=== PATIENT | female | born 1980 | race Caucasian/White ===

== ENCOUNTER → 2016-09-23 | Outpatient (CLI) | payer OTHER ==
[2016-09-23 16:01] LABS: CHLAM PCR NOT DETECTED (NOT DETECT)
== END ==
LOC: LAB 14:18
PROVIDERS: ATTEND Nurse Practitioner Acute Care
DX: N89.8 Other specified noninflammatory disorders of vagina (principal)
CPT/HCPCS: 87210; 87491; 87591

== ENCOUNTER → 2016-12-23 | Outpatient (CLI) | payer OTHER ==
[2016-12-23 12:39] LABS: CHLAM PCR NOT DETECTED (NOT DETECT)
== END ==
LOC: LAB 10:54
PROVIDERS: ATTEND Nurse Practitioner Acute Care
DX: N89.8 Other specified noninflammatory disorders of vagina (principal); R10.9 Unspecified abdominal pain
CPT/HCPCS: 87086; 87088; 87210; 87491; 87591

== ENCOUNTER → 2017-04-12 | Outpatient (CLI) | payer OTHER ==
[2017-04-12 11:23] LABS: BACTERIA (WET MOUNT) 4+ BACTERIA SEEN; EPITHELIALS (WET MOUNT) 4+ EPITHELIALS SEEN; T.VAGINALIS (WET MOUNT) NO TRICHOMONAS SEEN; WBCS (WET MOUNT) RARE WBCS SEEN; YEAST (WET MOUNT) YEAST SEEN
== END ==
LOC: LAB 11:18
PROVIDERS: ATTEND Nurse Practitioner Family
DX: N89.8 Other specified noninflammatory disorders of vagina (principal)
CPT/HCPCS: 87210

== ENCOUNTER 2017-10-22 08:23 | Emergency (ER) | payer OTHER ==
[2017-10-22 08:32] VITALS: BP 106/64
[2017-10-22] MEDS ORDERED: CLINDAMYCIN HCL 150 MG CAPSULE PO ONE (09:13)
[2017-10-22] MEDS ORDERED: ONDANSETRON 4 MG TAB.RAPDIS PO ONE (09:14)
[2017-10-22] MEDS ORDERED: KETOROLAC TROMETHAMINE 60 MG/2 ML SDV IM ONE (09:14)
--- NOTE | 2017-10-22 09:28 | ER Document Report ---
ED Oral Problem - General Chief Complaint: Sore Throat Stated Complaint: SORE THROAT Time Seen by Provider: 10/22/17 09:07 Mode of Arrival: Ambulatory Information source: Patient Notes: Patient complained of sore throat which started yesterday. He denies any fever or chills. TRAVEL OUTSIDE OF THE [place] IN LAST 30 DAYS: No - HPI Patient complains to provider of: Sore throat Onset: Sudden Quality of pain: Burning Severity: Mild Pain Level: 2 Sore throat: Mild Associated symptoms: Headache. denies: Cough, Difficulty speaking, Fever, Toothache Worsened by: Nothing Relieved by: Nothing Similar symptoms previously: No Recently seen / treated by doctor/dentist: No - Related Data Allergies/Adverse Reactions: Penicillins Allergy (Verified 10/22/17 08:23) Past Medical History - Social History Smoking Status: Never Smoker Chew tobacco use (# tins/day): No Frequency of alcohol use: Occasional Drug Abuse: None Family History: Reviewed & Not Pertinent Patient has suicidal ideation: No Patient has homicidal ideation: No Renal/ Medical History: Denies: Hx Peritoneal Dialysis Review of Systems - Review of Systems Constitutional: denies: Chills, Fever EENT: Throat pain Cardiovascular: No symptoms reported Respiratory: denies: Cough, Short of breath Gastrointestinal: No symptoms reported Genitourinary: No symptoms reported Female Genitourinary: No symptoms reported Musculoskeletal: No symptoms reported Hematologic/Lymphatic: No symptoms reported Neurological/Psychological: Headaches -: Yes All other systems reviewed and negative Physical Exam - Vital signs Vitals: Temp Pulse Resp BP Pulse Ox 98.1 F 101 H 16 106/64 98 10/22/17 08:30 10/22/17 08:30 10/22/17 08:30 10/22/17 08:30 10/22/17 08:30 - General General appearance: Appears well, Alert In distress: None - HEENT Head: Normocephalic Eyes: Normal Conjunctiva: Normal Cornea: Normal Extraocular movements intact: Yes Eyelashes: Normal Pupils: PERRL Ears: Normal Sinus: Normal Nasal: Normal Pharynx: Erythema, Exudate Neck: Normal, Anterior cervical chain - Respiratory Respiratory status: No respiratory distress Chest status: Nontender Breath sounds: Normal Chest palpation: Normal - Cardiovascular Rhythm: Regular Heart sounds: Normal auscultation Murmur: No - Abdominal Inspection: Normal Distension: No distension Bowel sounds: Normal Tenderness: Nontender Organomegaly: No organomegaly - Back Back: Normal, Nontender - Extremities General upper extremity: Normal inspection, Nontender, Normal color, Normal ROM , Normal temperature General lower extremity: Normal inspection, Nontender, Normal color, Normal ROM , Normal temperature, Normal weight bearing. No: Ang's sign - Neurological Neuro grossly intact: Yes Cognition: Normal Orientation: AAOx4 Emily Coma Scale Eye Opening: Spontaneous [place] Coma Scale Verbal: Oriented Emily Coma Scale Motor: Obeys Commands [place] Coma Scale Total: 15 Speech: Normal Motor strength normal: LUE, RUE, LLE, RLE Sensory: Normal - Psychological Associated symptoms: Normal affect, Normal mood - Skin Skin Temperature: Warm Skin Moisture: Dry Skin Color: Normal Course - Vital Signs Vital signs: Temp Pulse Resp BP Pulse Ox 98.1 F 101 H 16 106/64 98 10/22/17 08:30 10/22/17 08:30 10/22/17 08:30 10/22/17 08:30 10/22/17 08:30 - Transfer of Care Notes: 10/22/17 10:28 Acute pharyngitis. Acute tonsillitis. Discharge - Discharge Clinical Impression: Acute pharyngitis Qualifiers: Pharyngitis/tonsillitis etiology: other specified organisms Qualified Code(s): J02.8 - Acute pharyngitis due to other specified organisms Acute tonsillitis Qualifiers: Pharyngitis/tonsillitis etiology: unspecified etiology Qualified Code(s): J03.90 - Acute tonsillitis, unspecified Condition: Stable Disposition: HOME, SELF-CARE Additional Instructions: Please follow-up with your primary doctor as needed. Return to the emergency room if her condition worsens. Prescriptions: Clindamycin HCl 300 mg PO TID #30 capsule Ibuprofen [Motrin 600 mg Tablet] 600 mg PO TID PRN #20 tablet PRN Reason: Pain Scale Of 3 Ondansetron [Zofran Odt 4 mg Tablet] 4 mg PO Q6H PRN #15 tab.rapdis PRN Reason: Referrals: TRAVIS BAEZ, BEATRIZ [Primary Care Provider] - Follow up as needed
== END 2017-10-22 09:33 | disposition home or self-care (01) ==
LOC: ER 08:23
DX: J03.90 Acute tonsillitis, unspecified (principal)
CPT/HCPCS: 99282; 96372; J1885; S0119